=== PATIENT | male | born 1960 | race Caucasian/White ===

== ENCOUNTER 2021-06-23 09:46 | Emergency (ER) | payer OTHER ==
[~2021-06-23] VITALS: Ht 170.2 cm; Wt 101.9 kg
[2021-06-23] MEDS ORDERED: FLUORESCEIN OPHTHALMIC 1 MG STRIP ONE (10:31)
[2021-06-23] MEDS ORDERED: PROPARACAINE OPHTH 0.5%, 15ML ONE (10:31)
[2021-06-23] MEDS ORDERED: ACYCLOVIR 800 MG in SODIUM CHLORIDE 0.9% 250 ML IV ONE (11:35)
--- NOTE | 2021-06-23 12:00 | NUR ---
PT HAS SHINGLES OF RIGHT EYE, PAIN AND DRAINAGE
--- NOTE | 2021-06-23 13:36 | NUR ---
Patient given discharge instructions and they have confirmed that they understand the instructions. Patient ambulatory with steady gait.
[2021-06-23 13:40] VITALS: BP 136/98
== END 2021-06-23 13:42 ==
LOC: ED 10:18
DX: B02.33 Zoster keratitis (principal)
CPT/HCPCS: 96365; 99284; J0133; J7050

== ENCOUNTER 2021-06-24 19:26 | Emergency (ER) | payer OTHER ==
[~2021-06-24] VITALS: Ht 170.2 cm; Wt 100.9 kg
[2021-06-24] MEDS ORDERED: PROPARACAINE OPHTH 0.5%, 15ML RIGHTEYE ONE (20:00)
[2021-06-24] MEDS ORDERED: FLUORESCEIN OPHTHALMIC 1 MG STRIP RIGHTEYE ONE (20:00)
--- NOTE | 2021-06-24 21:49 | NUR ---
Pt to room from lobby at this time.
[2021-06-24] MEDS ORDERED: FLUORESCEIN OPHTHALMIC 1 MG STRIP ONE (21:51)
[2021-06-24] MEDS ORDERED: PROPARACAINE OPHTH 0.5%, 15ML ONE (21:52)
--- NOTE | 2021-06-24 21:53 | NUR ---
DR. HOLLINS AT BEDSIDE FOR EVAL.
[2021-06-24 22:32] VITALS: BP 141/96
== END 2021-06-24 23:03 | disposition home or self-care (01) ==
LOC: ED 22:16
DX: B02.33 Zoster keratitis (principal)
CPT/HCPCS: 99283